=== PATIENT | female | born 1960 | race Asian ===

== ENCOUNTER 2018-03-29 21:53 | Inpatient (IN) | payer BC, OTHER ==
[2018-03-29] MEDS: CEPHALEXIN 500 MG CAP PO (00:33)
[2018-03-29] MEDS ORDERED: AMLODIPINE 10 MG TAB PO (23:00)
[2018-03-29 23:12] LABS: ADD MAN DIFF? NO
[2018-03-29] MEDS: SOD CHLORIDE 0.9% 500 ML IV (23:12)
[2018-03-29] MEDS: KETOROLAC 15 MG INJ IV (23:13)
[2018-03-29 23:15] LABS: BASOPHILS % 0.5 % (0.0-2.0); EOSINOPHILS # 0.2 10^3/ul (0.0-0.5); EOSINOPHILS % 2.2 % (0.0-7.0); HEMATOCRIT 40.8 % (37.0-47.0); HEMOGLOBIN 13.6 g/dl (12.0-16.0); LYMPHOCYTES # 2.7 10^3/ul (0.8-2.9); LYMPHOCYTES % 36.1 % (15.0-51.0); MEAN CORPUSCULAR HGB CONC 33.3 g/dl (32.0-37.0); MEAN CORPUSCULAR VOLUME 84.1 fl (82.0-101.0); MEAN PLATELET VOLUME 9.1 fl (7.4-10.4); MONOCYTE # 0.4 10^3/ul (0.3-0.9); MONOCYTES % 5.1 % (0.0-11.0); NEUTROPHIL # 4.1 10^3/ul (1.6-7.5); NEUTROPHILS % 55.8 % (39.0-77.0); PLATELET COUNT 363 10^3/UL (140-415); RED BLOOD COUNT 4.85 10^6/ul (4.20-5.40); RED CELL DISTRIBUTION WIDTH 13.2 % (11.5-14.5)
[2018-03-29 23:15] LABS: WHITE BLOOD COUNT 7.4 10^3/ul (4.8-10.8)
[2018-03-29 23:19] LABS: ADD UMIC YES; UR ASCORBIC ACID NEGATIVE (NEGATIVE); UR BACTERIA FEW /HPF (NONE SEEN); UR BILIRUBIN (Dip) NEGATIVE (NEGATIVE); UR BLOOD (Dip) 2+ mg/dL (NEGATIVE); UR CLARITY CLEAR (CLEAR); UR COLOR YELLOW (YELLOW); UR GLUCOSE (Dip) NEGATIVE (NEGATIVE); UR KETONES (Dip) NEGATIVE (NEGATIVE); UR LEUKOCYTE ESTERASE (Dip) 1+ Leu/ul (NEGATIVE); UR MUCUS FEW /HPF (NONE SEEN); UR NITRITE (Dip) NEGATIVE (NEGATIVE); UR RBC 4 /HPF (0-5); UR SPECIFIC GRAVITY (Dip) 1.016 (1.003-1.030); UR TOTAL PROTEIN (Dip) NEGATIVE (NEGATIVE); UR UROBILINOGEN (Dip) NEGATIVE (NEGATIVE); UR WBC 6 /HPF (0-5)
[2018-03-29 23:34] LABS: ALANINE AMINOTRANSFERASE 21 IU/L (13-69); ALBUMIN 4.5 g/dl (3.3-4.9); ALBUMIN/GLOBULIN RATIO 1.45; ALKALINE PHOSPHATASE 121 IU/L (42-121); ANION GAP 15 (8-16); ASPARTATE AMINO TRANSFERASE 20 IU/L (15-46); BILIRUBIN,INDIRECT 0.3 mg/dl (0-1.1); BILIRUBIN,TOTAL 0.3 mg/dl (0.2-1.3); BLOOD UREA NITROGEN 11 mg/dl (7-20); CALCIUM 8.9 mg/dl (8.4-10.2); CARBON DIOXIDE 27 mmol/L (21-31); CHLORIDE 106 mmol/L (97-110); CREATININE 0.54 mg/dl (0.44-1.00); GLUCOSE 112 mg/dl (70-220); LIPASE 124 U/L (23-300); SODIUM 145 mmol/L (135-144); TOTAL PROTEIN 7.6 g/dl (6.1-8.1)
[2018-03-29 23:37] LABS: POTASSIUM 2.9 mmol/L (3.5-5.1)
[2018-03-29 23:46] LABS: TROPONIN-I < 0.012 ng/ml (0.000-0.120)
[2018-03-30] MEDS: MAGNESIUM SULFATE 1 GM/D5W 100 ML IVPB (00:33)
[2018-03-30] MEDS: POTASSIUM CHLORIDE (SR) 20 MEQ TAB PO (00:33)
[2018-03-30] MEDS: POTASSIUM CHLORIDE 50 ML IVPB ×2 (01:58→02:00)
[2018-03-30] MEDS: ONDANSETRON 4 MG INJ IV (02:19)
[2018-03-30] MEDS: SOD CHLORIDE 0.9% 500 ML IV (03:12)
[2018-03-30 03:39] LABS: ANION GAP 10 (8-16); BLOOD UREA NITROGEN 9 mg/dl (7-20); CALCIUM 8.4 mg/dl (8.4-10.2); CARBON DIOXIDE 31 mmol/L (21-31); CHLORIDE 107 mmol/L (97-110); CREATININE 0.53 mg/dl (0.44-1.00); GLUCOSE 130 mg/dl (70-220); SODIUM 145 mmol/L (135-144)
[2018-03-30 03:46] LABS: POTASSIUM 2.9 mmol/L (3.5-5.1)
[2018-03-30] MEDS ORDERED: NACL 0.9% 3 ML SYG IV (08:30)
[2018-03-30] MEDS ORDERED: morphine 2 MG INJ IV (08:30)
[2018-03-30] MEDS ORDERED: ALBUTEROL/IPRATROPIUM (NEB) 3 ML AMP HHN (08:30)
[2018-03-30] MEDS ORDERED: ONDANSETRON 4 MG INJ IV (08:30)
[2018-03-30] MEDS ORDERED: hydrALAzine 20 MG INJ IV (08:30)
[2018-03-30] MEDS: CEFTRIAXONE 1 GM/50 ML (PMX) 50 ML IVPB (09:00)
[2018-03-30] MEDS: HYDROCHLOROTHIAZIDE 25 MG TAB PO (10:15)
[2018-03-30] MEDS: AMLODIPINE 10 MG TAB PO (10:15)
[2018-03-30] MEDS: HEPARIN 5,000 UNIT/0.5 ML VIAL SC ×2 (10:16→22:08)
[2018-03-30 14:51] LABS: MAGNESIUM 2.2 mg/dl (1.7-2.5)
[2018-03-30 14:51] LABS: POTASSIUM 3.6 mmol/L (3.5-5.1)
[2018-03-30] MEDS: ACETAMINOPHEN 325 MG TAB PO (22:36)
[2018-03-31 07:50] LABS: ADD MAN DIFF? NO
[2018-03-31 07:57] LABS: WHITE BLOOD COUNT 6.8 10^3/ul (4.8-10.8)
[2018-03-31 07:57] LABS: BASOPHILS % 0.6 % (0.0-2.0); EOSINOPHILS # 0.2 10^3/ul (0.0-0.5); EOSINOPHILS % 2.9 % (0.0-7.0); HEMATOCRIT 42.5 % (37.0-47.0); LYMPHOCYTES # 2.7 10^3/ul (0.8-2.9); LYMPHOCYTES % 40.1 % (15.0-51.0); MEAN CORPUSCULAR HEMOGLOBIN 28.1 pg (29.0-33.0); MEAN CORPUSCULAR HGB CONC 32.9 g/dl (32.0-37.0); MEAN CORPUSCULAR VOLUME 85.3 fl (82.0-101.0); MEAN PLATELET VOLUME 9.4 fl (7.4-10.4); MONOCYTE # 0.3 10^3/ul (0.3-0.9); MONOCYTES % 4.3 % (0.0-11.0); NEUTROPHIL # 3.5 10^3/ul (1.6-7.5); PLATELET COUNT 386 10^3/UL (140-415); RED BLOOD COUNT 4.98 10^6/ul (4.20-5.40); RED CELL DISTRIBUTION WIDTH 13.2 % (11.5-14.5)
[2018-03-31 08:15] LABS: HEMOGLOBIN A1C 5.8 % (0-5.9)
[2018-03-31 08:26] LABS: ALANINE AMINOTRANSFERASE 20 IU/L (13-69); ALBUMIN 3.9 g/dl (3.3-4.9); ALBUMIN/GLOBULIN RATIO 1.25; ALKALINE PHOSPHATASE 113 IU/L (42-121); ANION GAP 16 (8-16); ASPARTATE AMINO TRANSFERASE 18 IU/L (15-46); BILIRUBIN,INDIRECT 0.3 mg/dl (0-1.1); BILIRUBIN,TOTAL 0.3 mg/dl (0.2-1.3); BLOOD UREA NITROGEN 10 mg/dl (7-20); CARBON DIOXIDE 27 mmol/L (21-31); CHLORIDE 104 mmol/L (97-110); CHOLESTEROL 229 mg/dl (100-200); CREATININE 0.62 mg/dl (0.44-1.00); GLUCOSE 152 mg/dl (70-220); HDL CHOLESTEROL 56 mg/dl (37-92); LDL CHOLESTEROL,CALCULATED 142 mg/dl; MAGNESIUM 2.1 mg/dl (1.7-2.5); POTASSIUM 3.2 mmol/L (3.5-5.1); SODIUM 144 mmol/L (135-144); TRIGLYCERIDES 156 mg/dl (0-149)
[2018-03-31] MEDS: CEFTRIAXONE 1 GM/50 ML (PMX) 50 ML IVPB (09:00)
[2018-03-31] MEDS: POTASSIUM CHLORIDE (SR) 20 MEQ TAB PO (09:14)
[2018-03-31] MEDS: HYDROCHLOROTHIAZIDE 25 MG TAB PO (09:14)
[2018-03-31] MEDS: AMLODIPINE 10 MG TAB PO (09:15)
[2018-03-31] MEDS: HEPARIN 5,000 UNIT/0.5 ML VIAL SC (09:30)
[2018-03-31 11:39] LABS: THYROID STIMULATING HORMONE 0.891 MIU/L (0.465-4.680)
[2018-03-31] MEDS ORDERED: ATORVASTATIN 10 MG TAB PO (21:00)
== END 2018-03-31 11:49 | disposition home or self-care (01) | DRG 305 ==
LOC: MS3 03-30 00:40 → E/R 21:53 → MS4 03-30 17:43
DX: I16.0 Hypertensive urgency (principal); N39.0 Urinary tract infection, site not specified; E87.6 Hypokalemia; I10 Essential (primary) hypertension; G62.9 Polyneuropathy, unspecified; E78.5 Hyperlipidemia, unspecified
CPT/HCPCS: 36415; 70450; 70551; 80048; 80053; 80061; 81001; 83036; 83690; 83735; 84132; 84443; 84484; 85025; 93005; 93306; 96365; 96372; 96375; 99285-25